=== PATIENT | male | born 1960 | race Caucasian/White ===

== ENCOUNTER 2016-08-22 10:05 | Emergency (ER) | payer MEDICARE, OTHER ==
[2016-08-22 10:22] VITALS: RESP 18
--- NOTE | 2016-08-22 11:20 | C.PDOC ---
History Of Present Illness 56 y/o male presents to the ED with complains of urinary frequency and bilateral flank pain x1 week. Pt denies history of kidney stones. Denies fever, headache, nausea, vomiting, dysuria, hematuria or any other complaints. Time Seen by Provider: 08/22/16 10:37 Chief Complaint (Nursing): Male Genitourinary History Per: Patient History/Exam Limitations: no limitations Onset/Duration Of Symptoms: Days Current Symptoms Are (Timing): Still Present Severity: Mild Quality Of Discomfort: "Pain" Associated Symptoms: Back Pain, Urinary Symptoms (frequency). denies: Fever, Nausea, Vomiting Alleviating Factors: None Recent travel outside of the [place]: No Past Medical History Reviewed: Historical Data, Nursing Documentation, Vital Signs Vital Signs: Last Vital Signs Temp 97.6 F 08/22/16 10:22 Pulse 55 L 08/22/16 10:22 Resp 18 08/22/16 10:22 BP 132/64 08/22/16 10:22 Pulse Ox 100 08/22/16 14:36 - Medical History PMH: HTN Family History: States: Unknown Family Hx - Social History Hx Alcohol Use: No Hx Substance Use: No - Immunization History Hx Tetanus Toxoid Vaccination: No Hx Influenza Vaccination: Yes Hx Pneumococcal Vaccination: No Review Of Systems Except As Marked, All Systems Reviewed And Found Negative. Constitutional: Negative for: Fever, Chills Gastrointestinal: Negative for: Nausea, Vomiting, Abdominal Pain Genitourinary: Positive for: Frequency. Negative for: Dysuria, Hematuria Musculoskeletal: Positive for: Back Pain Neurological: Negative for: Headache Physical Exam - Physical Exam Appears: Non-toxic, No Acute Distress Skin: Warm, Dry, No Rash Head: Atraumatic, Normacephalic Oral Mucosa: Moist Neck: Normal ROM, Supple Cardiovascular: Rhythm Irregular, No Murmur Respiratory: Normal Breath Sounds, No Rales, No Rhonchi, No Wheezing Gastrointestinal/Abdominal: Soft, No Tenderness Back: Normal Inspection, No CVA Tenderness Extremity: Bilateral: Atraumatic Neurological/Psych: Oriented x3, Normal Speech ED Course And Treatment - Laboratory Results Result Diagrams: 08/22/16 11:52 08/22/16 11:52 O2 Sat by Pulse Oximetry: 100 (on room air) Pulse Ox Interpretation: Normal - CT Scan/US CT Abd/Pelvis Other Rad Studies (CT/US): Read By Radiologist, Radiology Report Reviewed CT/US Interpretation: Accession No. : [id number]. Patient Name / ID : KELSEY BRINK / [id number]. Exam Date : 08/22/2016 13:08:38 ( Approved ). Study Comment : Sex / Age : M / 56Y. Creator : Oliver Spear MD. Dictator : Oliver Spear MD. Configuration Management Advisor : Paid Intern : Oliver Spear MD. Approver2 : Report Date : 08/22/2016 14:14:18. My Comment : . PROCEDURE: CT Abdomen and pelvis dated 08/22/2016. HISTORY: flank pain, hematuria, r/o kidney stone. COMPARISON: None. TECHNIQUE: Contiguous axial images of the abdomen and pelvis performed in standard fashion without oral or intravenous contrast material. Coronal and Sagittal reformats generated. Radiation dose: Total exam DLP = 200.17 mGy-cm. FINDINGS: LOWER THORAX: Minimal bibasilar atelectasis and or scarring. No effusion or basilar pneumothorax. Heart is enlarged with low-attenuation appearance of the cardiac chamber suggesting anemia. Clinical correlation is recommended. LIVER: Liver exhibits normal size measuring approximately 15.4 cm in CC dimension. No obvious hepatic mass or collection. Few tiny calcifications superior aspect right lobe liver nonspecific. . Prominent appearance of the IVC and hepatic IVC ; rule out right heart strain or early failure. Clinic correlation recommended. GALLBLADDER AND BILE DUCTS: Gallbladder is not visualized on this study and may be contracted due to nonfasting state; as no metallic clips are identified within the gallbladder fossa. However the possibility of prior cholecystectomy must be considered as well. . PANCREAS: The pancreas appears grossly unremarkable. SPLEEN: The spleen is not visualized with what appear to represent some some radiopaque densities in the expected location of the splenic fossa; rule out prior history of splenectomy. ADRENALS: No adrenal lesions. KIDNEYS AND URETERS: Kidneys exhibit relatively symmetric size. There is a discrete rounded partially exophytic approximately 2.2 cm low- attenuation focus anterolateral aspect upper pole right kidney most likely representing a cyst. In addition, there are 2 areas of low attenuation in the anterior aspect upper/ midpole and at anterior aspect lower pole left kidney that could represent areas of pyelonephritis however renal infarcts or renal masses not excluded. Clinic correlation recommended additional imaging may be prudent to further assess these areas. BLADDER: Urinary bladder is physiologically distended. No evidence of intraluminal urinary bladder calculi. REPRODUCTIVE: Prostatic prostate gland is somewhat heterogeneous measuring approximately 3.1 cm in transverse dimension. Peripancreatic calcifications and multiple calcified pelvic phleboliths are felt be present. APPENDIX: The appendix is not seen with complete certainty. No obvious inflammatory changes right lower quadrant of the abdomen. BOWEL: Evaluation of the bowel is limited due to the lack of oral contrast material. The stomach is incompletely distended which presumably accounts thick-walled appearance. Possibility of gastritis not excluded. Visualized loops of small bowel exhibit normal contour and caliber. No evidence of acute mechanical small bowel obstruction. Moderate amount of stool is seen within the cecum and ascending colon suggesting mild fecal retention. No definitive mural wall thickening. The osseous structures appear intact. There is straightening of the normal. PERITONEUM: Unremarkable. No fluid collection. No free air. LYMPH NODES: Unremarkable. No enlarged lymph nodes. VASCULATURE: Unremarkable. No aortic aneurysm. BONES: There is straightening of the normal lumbar lordosis. Vertebral bodies otherwise exhibit normal alignment. Vertebral bodies exhibit normal stature. No significant degenerative spondylosis. OTHER FINDINGS: None. IMPRESSION: 2 areas of low attenuation upper/ mid and lower pole left kidney possibly representing sites of pyelonephritis however renal infarcts or possibly renal masses that not excluded. Clinical correlation with history is recommended. Findings consistent small to medium sized cyst right kidney. No evidence of obstructing nephrolithiasis seen. Marked cardiomegaly ; rule out right heart strain or right heart failure as above. Findings also suggest anemia. Tiny calcific densities superior aspect right lobe liver nonspecific. Spleen is not visualized and presumably has been resected however clinical correlation with surgical history recommended. In addition, the gallbladder is not seen and may contracted due to nonfasting state versus prior surgical excision. Clinical correlation with surgical history recommended. Findings discussed with Dr. Keyes at 2:15 p.m. with written down and read back verification. Progress Note: Plan: UA, pain medications - Physician Consult Information Physician Contacted: Yo Atkinson Outcome Of Conversation: Discussed patient with Dr. Atkinson, he confirms patient has h/o sickle cell anemia, and is aware of CT scan findings. Disposition Counseled Patient/Family Regarding: Studies Performed, Diagnosis, Need For Followup - Disposition Referrals: Yo Atkinson MD [Staff Provider] - Disposition Time: 14:35 Additional Instructions: SEGUIMIENTO CON EL DR ATKINSON EN 1-2 ROJAS DEVUELVA A LA LCAUDIA DE EMERGENCIA SI LOS SNTOMAS EMPEORARAN TIENE ULTRASONIDO AMBULATORIO DE RIONES Instructions: Sickle Cell Anemia (DC) Print Language: [email or web address] - Clinical Impression Clinical Impression: Microscopic hematuria, Renal infarct, Sickle cell anemia - Scribe Statement The provider has reviewed the documentation as recorded by the Pernell Lee Provider Attestation: All medical record entries made by the Juanibe were at my direction and personally dictated by me. I have reviewed the chart and agree that the record accurately reflects my personal performance of the history, physical exam, medical decision making, and the department course for this patient. I have also personally directed, reviewed, and agree with the discharge instructions and disposition.
[2016-08-22] MEDS ORDERED: Sodium Chloride 0.9% 1,000 ML IV ONE (11:28)
[2016-08-22] MEDS ORDERED: Sodium Chloride 0.9% 1,000 ML ONE (11:43)
[2016-08-22 12:03] LABS: RBC URINE < 1 /hpf (0-3); URINE BILIRUBIN NEGATIVE (NEGATIVE); URINE BLOOD 1+ (NEGATIVE); URINE COLOR Yellow (YELLOW); URINE GLUCOSE (UA) NORMAL (Normal); URINE KETONE NEGATIVE (NEGATIVE); URINE LEUKOCYTE ESTERASE NEG Leu/uL (Negative); URINE PROTEIN NEGATIVE (NEGATIVE); URINE UROBILINOGEN NORMAL mg/dL (0.2-1.0); WBC URINE 1 /hpf (0-5)
[2016-08-22 12:06] LABS: CHLORIDE 101 mmol/L (98-107); POTASSIUM 4.1 mmol/L (3.6-5.2); SODIUM 139 mmol/L (132-148)
[2016-08-22 12:08] LABS: ALB/GLOB RATIO 1.2 (1.0-2.1); AST/SGOT 46 U/L (17-59); BILIRUBIN,TOTAL 3.9 mg/dL (0.2-1.3); CARBON DIOXIDE 24 mmol/L (22-30); GFR AFRICAN-AMERICAN > 60; TOTAL PROTEIN 8.3 g/dL (6.3-8.3)
[2016-08-22 12:09] LABS: ALKALINE PHOSPHATASE 82 U/L (38-126); ALT/SGPT 26 U/L (21-72); BLOOD UREA NITROGEN 10 mg/dL (9-20); CALCIUM 8.5 mg/dl (8.6-10.4); GLUCOSE,RANDOM 84 mg/dL (75-110)
[2016-08-22 12:10] LABS: HEMATOCRIT 19.7 % (35.0-51.0); MEAN CELL VOLUME 85.6 fL (80.0-94.0); MEAN CORPUSCULAR HEMOGLOBIN 30.4 pg (27.0-31.0); MEAN CORPUSCULAR HGB CONC 35.5 g/dL (33.0-37.0); MEAN PLATELET VOLUME 8.5 fL (7.2-11.7); RED CELL DISTRIBUTION WIDTH 22.5 % (11.5-14.5); WHITE BLOOD COUNT 9.8 K/uL (4.8-10.8)
[2016-08-22 12:41] LABS: BASO % 0.5 % (0.0-2.0); EOS # 0.1 K/uL (0.0-0.7); EOS % 0.9 % (0.0-4.0); LYMPH # 4.3 K/uL (1.0-4.3); LYMPH % 43.2 % (20.0-40.0)
--- NOTE | 2016-08-22 14:25 | CT ---
PROCEDURE: CT Abdomen and pelvis dated 08/22/2016. HISTORY: flank pain, hematuria, r/o kidney stone COMPARISON: None. TECHNIQUE: Contiguous axial images of the abdomen and pelvis performed in standard fashion without oral or intravenous contrast material. Coronal and Sagittal reformats generated. Radiation dose: Total exam DLP = 200.17 mGy-cm. FINDINGS: LOWER THORAX: Minimal bibasilar atelectasis and or scarring. No effusion or basilar pneumothorax. Heart is enlarged with low-attenuation appearance of the cardiac chamber suggesting anemia. Clinical correlation is recommended. LIVER: Liver exhibits normal size measuring approximately 15.4 cm in CC dimension. No obvious hepatic mass or collection. Few tiny calcifications superior aspect right lobe liver nonspecific. . Prominent appearance of the IVC and hepatic IVC; rule out right heart strain or early failure. Clinic correlation recommended. GALLBLADDER AND BILE DUCTS: Gallbladder is not visualized on this study and may be contracted due to nonfasting state; as no metallic clips are identified within the gallbladder fossa. However the possibility of prior cholecystectomy must be considered as well. . PANCREAS: The pancreas appears grossly unremarkable. SPLEEN: The spleen is not visualized with what appear to represent some some radiopaque densities in the expected location of the splenic fossa; rule out prior history of splenectomy. ADRENALS: No adrenal lesions. KIDNEYS AND URETERS: Kidneys exhibit relatively symmetric size. There is a discrete rounded partially exophytic approximately 2.2 cm low-attenuation focus anterolateral aspect upper pole right kidney most likely representing a cyst. In addition, there are 2 areas of low attenuation in the anterior aspect upper/ midpole and at anterior aspect lower pole left kidney that could represent areas of pyelonephritis however renal infarcts or renal masses not excluded. Clinic correlation recommended additional imaging may be prudent to further assess these areas. BLADDER: Urinary bladder is physiologically distended. No evidence of intraluminal urinary bladder calculi. REPRODUCTIVE: Prostatic prostate gland is somewhat heterogeneous measuring approximately 3.1 cm in transverse dimension. Peripancreatic calcifications and multiple calcified pelvic phleboliths are felt be present. APPENDIX: The appendix is not seen with complete certainty. No obvious inflammatory changes right lower quadrant of the abdomen. BOWEL: Evaluation of the bowel is limited due to the lack of oral contrast material. The stomach is incompletely distended which presumably accounts thick-walled appearance. Possibility of gastritis not excluded. Visualized loops of small bowel exhibit normal contour and caliber. No evidence of acute mechanical small bowel obstruction. Moderate amount of stool is seen within the cecum and ascending colon suggesting mild fecal retention. No definitive mural wall thickening. The osseous structures appear intact. There is straightening of the normal PERITONEUM: Unremarkable. No fluid collection. No free air. LYMPH NODES: Unremarkable. No enlarged lymph nodes. VASCULATURE: Unremarkable. No aortic aneurysm. BONES: There is straightening of the normal lumbar lordosis. Vertebral bodies otherwise exhibit normal alignment. Vertebral bodies exhibit normal stature. No significant degenerative spondylosis. OTHER FINDINGS: None. IMPRESSION: 2 areas of low attenuation upper/ mid and lower pole left kidney possibly representing sites of pyelonephritis however renal infarcts or possibly renal masses that not excluded. Clinical correlation with history is recommended. Findings consistent small to medium sized cyst right kidney. No evidence of obstructing nephrolithiasis seen. Marked cardiomegaly ; rule out right heart strain or right heart failure as above. Findings also suggest anemia. Tiny calcific densities superior aspect right lobe liver nonspecific. Spleen is not visualized and presumably has been resected however clinical correlation with surgical history recommended. In addition, the gallbladder is not seen and may contracted due to nonfasting state versus prior surgical excision. Clinical correlation with surgical history recommended. Findings discussed with Dr. Keyes at 2:15 p.m. with written down and read back verification.
[2016-08-22 14:53] VITALS: BP 132/68; PULSE 60; TEMP 97.8; O2SAT 98
== END 2016-08-22 14:52 | disposition home or self-care (01) ==
LOC: C.ER 10:05
DX: N28.0 Ischemia and infarction of kidney (principal); R31.29 Other microscopic hematuria; D57.1 Sickle-cell disease without crisis
CPT/HCPCS: 74176; 80053; 81001; 85025; 87086; 96360; 99285; J7040